=== PATIENT | female | born 1940 | race Caucasian/White ===

== ENCOUNTER 2019-11-07 12:30 | Emergency (ER) | payer OTHER, MEDICARE ==
[~2019-11-07] VITALS: Ht 162.6 cm; Wt 72.6 kg
[2019-11-07 12:54] VITALS: BP 129/69
== END 2019-11-07 14:01 | disposition home or self-care (01) ==
LOC: ER 12:31
DX: R51 Headache (principal); V49.59XA Passenger injured in collision with other motor vehicles in traffic accident, initial encounter; Y93.89 Activity, other specified; Y92.488 Other paved roadways as the place of occurrence of the external cause; Y99.8 Other external cause status
CPT/HCPCS: 70450; 99284; J7030